=== PATIENT | female | born 1945 | race Caucasian/White ===

== ENCOUNTER 2016-10-30 08:00 | Outpatient (RCR) | payer MEDICARE, OTHER ==
[2016-12-07] MEDS ORDERED: FOSAMAX 70MG TA70 MG PO (11:45)
[2016-12-07] MEDS ORDERED: COMBIGAN 0.2%-010 ML OU (11:46)
[2016-12-07] MEDS ORDERED: LIPITOR 40MG TA40 MG PO (11:48)
[2016-12-07] MEDS ORDERED: PREMARIN .3MG0.3 MG PO (11:48)
[2016-12-07] MEDS ORDERED: DETROL LA4 PO (11:49)
== END 2017-01-03 | disposition home or self-care (01) ==
LOC: MKS.ESL.PT
DX: M54.31 Sciatica, right side (principal)
CPT/HCPCS: G8978-GP; G8979-GP

== ENCOUNTER → 2016-12-09 | Outpatient (CLI) | payer MEDICARE, OTHER ==
[~2016-12-09] VITALS: Ht 162.6 cm; Wt 54.3 kg
[~2016-12-09] MED LIST: COMBIGAN 0.2%-010 ML OU; DETROL LA4 PO; FOSAMAX 70MG TA70 MG PO; LIPITOR 40MG TA40 MG PO; PREMARIN .3MG0.3 MG PO
[2016-12-09 13:24] VITALS: BP 141/90; PULSE 64
[2016-12-09 14:45] VITALS: BP 156/89; PULSE 63
== END ==
LOC: COL.RAD 13:07
DX: M54.41 Lumbago with sciatica, right side (principal); G89.29 Other chronic pain; H40.9 Unspecified glaucoma; E78.5 Hyperlipidemia, unspecified; M81.0 Age-related osteoporosis without current pathological fracture; Z79.899 Other long term (current) drug therapy

== ENCOUNTER → 2017-05-20 | Outpatient (CLI) | payer MEDICARE, OTHER ==
[~2017-05-20] VITALS: Ht 162.6 cm; Wt 52.1 kg
[~2017-05-20] MED LIST changes: +ZOCOR 40MG40 MG PO
[2017-05-20 12:14] VITALS: BP 152/86; PULSE 60
[2017-05-20 13:26] VITALS: BP 147/88; PULSE 60
== END ==
LOC: COL.RAD 11:59
DX: M54.41 Lumbago with sciatica, right side (principal); G89.29 Other chronic pain; M54.16 Radiculopathy, lumbar region; Z90.710 Acquired absence of both cervix and uterus; Z98.890 Other specified postprocedural states
CPT/HCPCS: J3301

== ENCOUNTER → 2017-05-24 | Outpatient (CLI) | payer MEDICARE, OTHER | LOC: MC.RAD 10:08 | DX: Z12.31 Encounter for screening mammogram for malignant neoplasm of breast (principal) ==

== ENCOUNTER → 2018-06-07 | Outpatient (CLI) | payer MEDICARE, OTHER | LOC: MC.RAD 09:44 | DX: Z12.31 Encounter for screening mammogram for malignant neoplasm of breast (principal) ==

== ENCOUNTER 2019-01-21 05:51 | Emergency (ER) | payer MEDICARE, OTHER ==
[~2019-01-21] VITALS: Ht 160 cm; Wt 52.3 kg
[2019-01-21 05:57] VITALS: BP 137/82; TEMP 98.5
[2019-01-21] MEDS ORDERED: MULTI VITAMINS1 TAB PO (07:03)
[2019-01-21] MEDS ORDERED: CALCIUM 600-D 61 TAB PO (07:04)
[2019-01-21] MEDS ORDERED: CITRUCEL WI2 GM/Dose PO (07:16)
[2019-01-21] MEDS ORDERED: AMOXICILLIN 8751 TAB PO (07:19)
[2019-01-21 07:36] VITALS: PULSE 66
== END 2019-01-21 07:36 | disposition home or self-care (01) ==
LOC: COL.ER 05:51
DX: L03.213 Periorbital cellulitis (principal); Z90.710 Acquired absence of both cervix and uterus

== ENCOUNTER → 2019-06-21 | Outpatient (CLI) | payer MEDICARE, OTHER ==
[~2019-06-21] MED LIST changes: +AMOXICILLIN 8751 TAB PO; +CALCIUM 600-D 61 TAB PO; +CITRUCEL WI2 GM/Dose PO; +MULTI VITAMINS1 TAB PO
== END ==
LOC: MC.RAD 14:01
DX: Z12.31 Encounter for screening mammogram for malignant neoplasm of breast (principal)

== ENCOUNTER → 2020-06-24 | Outpatient (CLI) | payer MEDICARE, OTHER | LOC: MC.RAD 10:05 | DX: Z12.31 Encounter for screening mammogram for malignant neoplasm of breast (principal) ==

== ENCOUNTER → 2020-08-13 | Outpatient (CLI) | payer MEDICARE, OTHER | LOC: COL.CARD 08-08 13:00 | DX: R42 Dizziness and giddiness (principal) ==

== ENCOUNTER → 2020-09-24 | Outpatient (CLI) | payer MEDICARE, OTHER ==
[~2020-09-24] VITALS: Ht 160 cm; Wt 59.0 kg
[~2020-09-24] MED LIST changes: +KEPPRA 500MG500 MG PO; +PROLIA60 MG/ML SQ; +REQUIP0.25 MG PO
[2020-09-24 09:05] VITALS: BP 144/92; PULSE 64
[2020-09-24 09:45] VITALS: BP 161/92; PULSE 62
== END ==
LOC: COL.RAD 08:40
DX: M54.41 Lumbago with sciatica, right side (principal); G89.29 Other chronic pain
CPT/HCPCS: J3301

== ENCOUNTER → 2020-11-14 | Outpatient (CLI) | payer MEDICARE, OTHER | LOC: COL.RAD 11-08 08:15 | DX: G40.909 Epilepsy, unspecified, not intractable, without status epilepticus (principal); H93.13 Tinnitus, bilateral ==

== ENCOUNTER 2021-06-17 06:22 | Emergency (ER) | payer MEDICARE, OTHER ==
[~2021-06-17] VITALS: Ht 160 cm; Wt 54.5 kg
[2021-06-17 06:31] VITALS: TEMP 98
[2021-06-17 07:26] VITALS: BP 138/86; PULSE 73
== END 2021-06-17 07:28 | disposition home or self-care (01) ==
LOC: COL.ER 06:22
DX: R42 Dizziness and giddiness (principal)

== ENCOUNTER 2021-06-19 22:19 | Emergency (ER) | payer MEDICARE, OTHER ==
[~2021-06-19] VITALS: Ht 162.6 cm; Wt 55.9 kg
[2021-06-19 22:23] VITALS: TEMP 97.6
[2021-06-19 23:06] LABS: COLLECTION METHOD CLEAN CATCH
[2021-06-19 23:11] LABS: BASO # 0.1 K/mm3 (0.0-0.2); BASO % 0.9 % (0.0-2.0); EOS # 0.2 K/mm3 (0.0-0.7); EOS % 2.7 % (0-4.0); GRAN % 59.9 % (42.2-75.2); HEMATOCRIT 41.5 % (37.0-47.0); HEMOGLOBIN 13.8 g/dl (12.5-16.0); LYMPH # 1.8 K/mm3 (1.2-3.4); LYMPH % 26.9 % (20.0-51.0); MEAN CELL VOLUME 90 fl (80.0-100.0); MEAN CORPUSCULAR HEMOGLOBIN 30 pg (27.0-31.0); MEAN CORPUSCULAR HGB CONC 33 g/dl (33.0-37.0); MEAN PLATELET VOLUME 10.8 fl (7.4-10.4); MONO # 0.6 K/mm3 (0.1-0.6); MONO % 9.2 % (1.7-9.3); PLATELET COUNT 282 K/mm3 (130-400); RED BLOOD COUNT 4.61 M/mm3 (4.10-5.30); REDCELL DISTRIBUTION WIDTH-CV 12.9 % (11.5-14.5)
[2021-06-19 23:16] LABS: PH 7 (5-8); SQUAMOUS EPITHELIAL 0-2 /hpf; URINE APPEARANCE Clear; URINE BACTERIA None Seen /hpf; URINE BILIRUBIN Negative (NEGATIVE); URINE BLOOD Negative (NEGATIVE); URINE COLOR Colorless; URINE GLUCOSE Negative (NEGATIVE); URINE KETONE Negative (NEGATIVE); URINE LEUKOCYTE ESTERASE Negative (NEGATIVE); URINE NITRATE Negative (NEGATIVE); URINE PROTEIN(semi-quant) Negative (NEGATIVE); URINE RBC 0-2 /hpf; URINE UROBILINOGEN Negative (NEGATIVE)
[2021-06-19 23:28] LABS: ALANINE AMINOTRANSFERASE 23 U/L (0-55); ALBUMIN 4.4 gm/dL (3.4-4.8); ALKALINE PHOSPHATASE 78 U/L (40-150); ANION GAP 11 mmol/L (7-16); AST,SGOT 29 U/L (5-34); BILIRUBIN,TOTAL 0.2 mg/dL (0.2-1.2); BLOOD UREA NITROGEN 18 mg/dL (10-20); C-REACTIVE PROTEIN 0.09 mg/dL (0.00-0.50); CALCIUM 10.7 mg/dL (8.4-10.2); CARBON DIOXIDE 24 mmol/L (23-31); CHLORIDE 106 mmol/L (98-107); CREATININE, serum 0.79 mg/dL (0.57-1.11); GLUCOSE 102 mg/dL (70-99); POTASSIUM 3.8 mmol/L (3.5-4.5); SODIUM 141 mmol/L (136-145); TOTAL PROTEIN 7.4 gm/dL (6.2-8.1)
[2021-06-19 23:40] LABS: TROPONIN-I < 0.010 ng/mL (0.00-0.033)
[2021-06-20 00:05] VITALS: BP 178/80; PULSE 76
== END 2021-06-20 00:07 | disposition home or self-care (01) ==
LOC: COL.ER 22:19
PROVIDERS: Nurse Practitioner Primary Care
DX: R03.0 Elevated blood-pressure reading, without diagnosis of hypertension (principal); R42 Dizziness and giddiness
CPT/HCPCS: J7030

== ENCOUNTER 2021-07-15 14:30 | Outpatient (RCR) | payer MEDICARE, OTHER | END 2021-07-15 15:34 | disposition home or self-care (01) | LOC: MKS.ESL.PT 14:30 | DX: R42 Dizziness and giddiness (principal) ==

== ENCOUNTER → 2021-07-16 | Outpatient (CLI) | payer MEDICARE, OTHER | LOC: COL.CARD 11:14 | DX: R03.0 Elevated blood-pressure reading, without diagnosis of hypertension (principal) ==

== ENCOUNTER → 2022-02-05 | Outpatient (CLI) | payer MEDICARE, OTHER | LOC: COL.RAD 14:02 | DX: M27.40 Unspecified cyst of jaw (principal); K11.20 Sialoadenitis, unspecified ==

== ENCOUNTER 2022-11-02 14:45 | Outpatient (RCR) | payer MEDICARE, OTHER | END 2022-11-13 | disposition home or self-care (01) | LOC: WSST | DX: R14.0 Abdominal distension (gaseous) (principal) ==